=== PATIENT | male | born 1980 | race Caucasian/White ===

== ENCOUNTER 2016-11-30 11:44 | Emergency (ER) | payer BC, OTHER ==
[~2016-11-30] VITALS: Ht 175.3 cm; Wt 76.2 kg
[~2016-11-30 11:44] MED LIST: AMOXICILLIN500 MG ORAL; IBUPROFEN600 MG ORAL; VICODIN 5-3001 EACH ORAL
[2016-11-30 11:55] VITALS: BP 145/90
[2016-11-30] MEDS ORDERED: TRUVADA 200 MG1 EAC1 ORAL (11:56)
[2016-11-30] MEDS ORDERED: XANAX1 MG ORAL (11:56)
[2016-11-30] MEDS ORDERED: FLONASE ALLERG9.9 ML NS (12:24)
[2016-11-30] MEDS ORDERED: IBUPROFEN600 MG ORAL (12:24)
[2016-11-30] MEDS ORDERED: PSEUDOEPHEDRINE60 MG PO (12:24)
[2016-11-30 12:35] VITALS: BP 132/92
--- NOTE | 2016-11-30 12:47 | Emergency Room Report ---
History of Present Illness General Chief Complaint: Headache Source: Patient, Medical Record Present Illness HPI The patient is a 36-year-old male presenting for congestion and headache. The patient states that the symptoms began 1 week prior and have not decreased. Pain is described as an 8/10 dull ache to the front of the face and does not radiate. The patient states that he has had similar symptoms in the past due to sinus issues. The patient has taken Motrin at home which has not helped. The patient does admit to nasal congestion and sneezing. Patient denies fever, chills, neck pain or stiffness, shortness of breath, cough Allergies: Coded Allergies: No Known Allergies (Unverified , 06/11/12) Patient History Past Medical History: see triage record Pertinent Family History: none Reviewed Nursing Documentation: PMH: Agreed, PSxH: Agreed Nursing Documentation-PMH Hx Asthma: Yes Hx Cancer: No Hx Neurological Problems: No Review of Systems All Other Systems: negative except mentioned in HPI Physical Exam Vital Signs Date Time Temp Pulse Resp B/P Pulse Ox O2 Delivery O2 Flow Rate FiO2 11/30/16 11:49 98.4 68 16 145/90 98 Room Air Sp02 EP Interpretation: reviewed, normal General Appearance: no apparent distress, alert, GCS 15, non-toxic Head: normocephalic, atraumatic Eyes: bilateral eye PERRL, bilateral eye normal inspection ENT: normal pharynx, no angioedema, normal voice, TMs + canals normal, uvula midline, nasal congestion, other - TTP over bilat frontal and maxillary sinuses Neck: full range of motion, supple/symm/no masses Respiratory: chest non-tender, lungs clear, normal breath sounds, no wheezing, speaking full sentences Cardiovascular #1: regular rate, rhythm, no edema Musculoskeletal: back normal, gait/station normal, normal range of motion, non- tender Neurologic: alert, oriented x3, responsive, motor strength/tone normal, sensory intact, speech normal Psychiatric: judgement/insight normal, memory normal, mood/affect normal, no suicidal/homicidal ideation Skin: normal color, no rash, warm/dry, well hydrated Lymphatic: no adenopathy Medical Decision Making PA Attestation Dr. evangelista is my supervising physician. Patient management was discussed with my supervising physician Diagnostic Impression: Primary Impression: Acute sinusitis ER Course The patient is a 36-year-old male presenting for congestion and headache. Differential diagnoses considered but not limited to: Sinusitis, seasonal allergies, migraine SMITH, rhinitis Physical exam: Vitals within normal limits. No apparent distress HEENT exam: There is tenderness to palpation over bilateral frontal and maxillary sinuses. + Nasal congestion otherwise unremarkable. Lungs CTA bilat The patient is discharged home with a prescription for Flonase, Sudafed, and Motrin. ER precautions are given and the patient will follow up with PMD Last Vital Signs Date Time Temp Pulse Resp B/P Pulse Ox O2 Delivery O2 Flow Rate FiO2 11/30/16 11:55 98.4 68 16 145/90 98 Room Air Status: improved Disposition: HOME, SELF-CARE Condition: Improved Scripts Pseudoephedrine Hcl* (SUDAFED*) 60 Mg Tablet 60 MG PO Q6H, #20 TAB Prov: LAST PEDRO P.A. 11/30/16 Fluticasone Propionate (Flonase Allergy Relief) 9.9 Ml [place].susp 1 SPRAYS NS DAILY, #10 ML Prov: LAST PEDRO P.A. 11/30/16 Ibuprofen* (MOTRIN*) 600 Mg Tablet 600 MG ORAL Q8H Y for For Pain, #30 TAB 0 Refills Prov: YOSEFANJUANY P.A. 11/30/16 Referrals: NOT CHOSEN IPA/MD,REFERRING (PCP) Patient Instructions: Sinusitis, Adult Additional Instructions: I discussed my findings with the patient. All questions and concerns have been answered. Treatment and medication compliance have been addressed. I advised the patient that they need to follow up with PMD in 3-5 days. Return to ED if pain remains or worsens, you experience a fever, or if needed for any reason. Patient verbalized understanding of discharge instructions. LAST PEDRO Nov 30, 2016 12:47
== END 2016-11-30 12:35 | disposition home or self-care (01) ==
LOC: EMR 12:20
DX: J01.90 Acute sinusitis, unspecified (principal)
CPT/HCPCS: 99284

== ENCOUNTER 2017-06-10 13:27 | Emergency (ER) | payer BC ==
[~2017-06-10] VITALS: Ht 172.7 cm; Wt 74.8 kg
[~2017-06-10 13:27] MED LIST changes: +FLONASE ALLERG9.9 ML NS; +PSEUDOEPHEDRINE60 MG PO; +TRUVADA 200 MG1 EAC1 ORAL; +XANAX1 MG ORAL
[2017-06-10] MEDS ORDERED: TRUVADA 200 MG1 EAC1 ORAL (13:47)
[2017-06-10] MEDS ORDERED: ALPRAZOLAM1 MG ORAL (13:47)
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
[2017-06-10 15:05] VITALS: BP_SYST 154; BP_SYST 159; BP_DIAS 85; BP_DIAS 87
== END 2017-06-10 15:06 | disposition home or self-care (01) ==
LOC: EMR 14:23
DX: R51 Headache (principal); F19.920 Other psychoactive substance use, unspecified with intoxication, uncomplicated; F41.9 Anxiety disorder, unspecified
CPT/HCPCS: 80300; 93005; 99283